=== PATIENT | male | born 1955 | race Hispanic/Latino ===

== ENCOUNTER 2020-01-02 09:17 | Emergency (ER) | payer MEDICARE, OTHER ==
[2020-01-02] MEDS ORDERED: Ketorolac Tromethamine 30 MG/ML VIAL ONE (10:47)
--- NOTE | 2020-01-02 10:54 | CT ---
CT ABDOMEN PELVIS WITHOUT IV CONTRAST: HISTORY:Left flank pain COMPARISON: None DISCLAIMER: Absence of oral and IV contrast reduces the sensitivity of the exam particularly for the evaluation of solid organs and bowel. FINDINGS: The lung bases are clear. No free air or free fluid is seen in the abdomen or pelvis. No calcified ga llstones are noted. There is a 13 mm hyperdense focal lesion in the right renal cortex with attenuation value of 61 Houns field units, suspicious for a hemorrhagic cyst. No calculi are seen in the kidneys, ureters or the urinary bladder. No hydroureteronephrosis seen on either side. There are vascular calcifications without evidence of aneurysmal dilatation of the abdominal aorta. D egenerative changes are seen in the spine. There is minimal anterolisthesis of L5 over S1. 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 The appendix is normal. IMPRESSION: 1. No CT evidence of urinary tract calculi or obstruction 2. Probable right renal hemorrhagic cyst. RECOMMENDATION: Follow-up CT scan using the renal mass protocol, with limited IV contrast is recommended in 3 months.
== END 2020-01-02 11:24 | disposition home or self-care (01) ==
LOC: MADERS 09:17
DX: S33.5XXA Sprain of ligaments of lumbar spine, initial encounter (principal); J02.8 Acute pharyngitis due to other specified organisms; B97.89 Other viral agents as the cause of diseases classified elsewhere; F17.210 Nicotine dependence, cigarettes, uncomplicated; X58.XXXA Exposure to other specified factors, initial encounter
CPT/HCPCS: 74176; 96372; J1885

== ENCOUNTER 2025-05-15 07:23 | Emergency (ER) | payer OTHER, MEDICAID ==
[2025-05-15 08:02] LABS: #Basophils 0.2 thou/uL (0.0-0.2); #Eosinophils 0.2 thou/uL (0.0-0.7); #Lymphocytes 3.4 thou/uL (1.20-3.40); #Monocytes 1.0 thou/uL (0.11-0.59); #Neutrophils 11.3 thou/uL (1.40-6.50); %Basophils 1.3 % (0.0-1.0); %Eosinophils 1.1 % (0.0-10.0); %Lymphocytes 21.2 % (21.0-51.0); %Monocytes 5.9 % (0.0-10.0); %Neutrophils 70.5 % (42.0-75.0); Hematocrit 29.9 % (42.0-52.0); Hemoglobin 9.5 g/dL (14.0-18.0); Mean Corpuscular Hemoglobin 26.7 pg (27.0-31.0); Mean Corpuscular Volume 84.5 fl (78.0-98.0); Platelet Count 343 10x3/uL (130-400); Red Blood Cell (RBC) Count 3.54 mill/uL (4.70-6.10); White Blood Cell (WBC) Count 16.0 10x3/uL (4.8-10.8)
[2025-05-15 08:05] LABS: ALT (SGPT) 13 U/L (Less than 45); AST (SGOT) 12 U/L (11-34); Albumin 2.7 g/dL (3.1-4.5); Alkaline Phosphatase 80 U/L (40-110); Anion Gap 14 mmol/L (10-20); BUN (Urea Nitrogen) 37 mg/dL (8.4-25.7); Bilirubin, Total 0.3 mg/dL (0.3-1.2); Calc. Creatinine Clearance 0 mL/min (70-130); Calcium 8.3 mg/dL (7.8-10.44); Carbon Dioxide 23 mmol/L (23-31); Chloride 105 mmol/L (98-107); Globulin 2.8 g/dL (2.4-3.5); Glucose 237 mg/dL (80-115); Potassium 3.7 mmol/L (3.5-5.1); Sodium 138 mmol/L (136-145)
[2025-05-15] MEDS ORDERED: Cefepime 2 GM VIAL ONE (08:21)
[2025-05-15 08:23] LABS: Glucose, Urine (Dipstick) Negative (Negative); Leukocyte Negative (Negative); Protein, Urine (Dipstick) Negative (Neg-Trace); Specific Gravity, Urine 1.015 (1.005-1.030)
[2025-05-15 08:28] LABS: RBC/HPF 0-3 HPF (0-3)
[2025-05-15 08:29] LABS: Bacteria/HPF Rare-Few HPF (None Seen); CAUTI Indications for Culture Alt mental st,lethar; WBC/HPF 0-3 HPF (0-3)
[2025-05-15 08:30] LABS: Cocaine Metabolite Screen Negative (Negative); THC/Cannabinoid Screen Negative (Negative); Tricyclic Screen Negative (Negative); Urine Culture Reflex No No
[2025-05-15 08:34] LABS: Troponin I 0.129 ng/mL (< 0.028)
[2025-05-15 08:52] LABS: Acetaminophen Less than 10 mcg/mL (Less than 10); Lipase 45 U/L (8-78); Magnesium 1.9 mg/dL (1.6-2.6); Salicylate Less than 8.0 mg/dL (Less than 8.0)
[2025-05-15] MEDS ORDERED: Iopamidol 370 76% 100 ML VIAL ONE (09:00)
[2025-05-15 10:24] LABS: Troponin I 0.150 ng/mL (< 0.028)
== END 2025-05-15 12:00 | disposition short-term general hospital (02) ==
LOC: MADERS 07:23
DX: R53.1 Weakness (principal); R41.82 Altered mental status, unspecified; R79.89 Other specified abnormal findings of blood chemistry; F17.210 Nicotine dependence, cigarettes, uncomplicated
CPT/HCPCS: 36416; 51701; 70450; 70496; 70498; 74177; 80053; 80306; 80307; 81001; 82010; 83605; 83690; 83735; 84484; 85025; 86850; 86900; 86901; 87040; 87077; 87149; 93005; 94760; 96365; 96366; 96367; 96375; 96376; J0692; J2250; J3373; J7030; Q9967